=== PATIENT | female | born 1985 | race Caucasian/White ===

== ENCOUNTER 2017-09-25 02:11 | Emergency (ER) | payer SELFPAY ==
[~2017-09-25] VITALS: Ht 167.6 cm; Wt 86.2 kg
[2017-09-25 02:31] VITALS: BP 134/94
--- NOTE | 2017-09-25 02:38 | NUR ---
SUCCESSFULLY CUT RING OFF THE FINGER FROM PATIENT, KRISTA WELL. DISTAL CMS INTACT.
== END 2017-09-25 02:40 | disposition home or self-care (01) ==
LOC: ER 02:11
DX: S69.91XA Unspecified injury of right wrist, hand and finger(s), initial encounter (principal); W22.8XXA Striking against or struck by other objects, initial encounter; Y93.89 Activity, other specified; Y92.89 Other specified places as the place of occurrence of the external cause; Y99.8 Other external cause status
CPT/HCPCS: 99284; A4606; Z7610; Z7502

== ENCOUNTER 2018-12-23 21:53 | Emergency (ER) | payer MEDICAID, OTHER ==
[~2018-12-23] VITALS: Ht 177.8 cm; Wt 77.1 kg
--- NOTE | 2018-12-23 22:10 | NUR ---
PT JANELL FROM THE STREET FOR ETOH, PT VERBALLY RESPONSIVE, -SOB, NAD NOTED, PT TO BED 6, PT ON MONITOR, VSS, PENDING MD GANT
[2018-12-23] MEDS ORDERED: HALOPERIDOL LACTATE INJ 5 MG/ML VIAL ONE (22:11)
--- NOTE | 2018-12-23 22:12 | NUR ---
PT YELLING AND PHYSICALLY AGGRESSIVE TOWARDS STAFF. SECURITY AND ER NOTIFIED
[2018-12-23] MEDS ORDERED: HALOPERIDOL LACTATE INJ 5 MG/ML VIAL IM ONE (22:30)
--- NOTE | 2018-12-23 23:27 | NUR ---
Patient is resting comfortably in bed with eyes closed. Easily aroused. VSS
--- NOTE | 2018-12-24 01:23 | NUR ---
PT AAOX4. ABLE TO AMBULATE WITH STEADY GAIT. CONSTANTLY BEING TOLD TO RETURN TO ROOM. PER DR. SORIA, UNABLE TO DISCHARGE AT THIS TIME.
--- NOTE | 2018-12-24 03:04 | NUR ---
PT AAOX4. VITAL SIGNS STABLE. ABLE TO AMBULATE WITH STEADY GAIT. PER DR. SORIA, PT MEDICALLY CLEARED FOR DISCHARGE. INSTRUCTED NOT TO DRIVE, PT VERBLAIZED UNDERSTANDING. Patient discharged to home in stable condition. Written and verbal after care instructions given. Patient verbalizes understanding of instruction.
[2018-12-24 03:07] VITALS: BP 124/75
== END 2018-12-24 03:08 | disposition home or self-care (01) ==
LOC: ER 21:56
DX: F10.129 Alcohol abuse with intoxication, unspecified (principal); Y90.9 Presence of alcohol in blood, level not specified
CPT/HCPCS: 82962; 96372; 99283; J1630